=== PATIENT | male | born 1995 | race Caucasian/White ===

== ENCOUNTER 2017-08-03 20:14 | Emergency (ER) | payer BC, OTHER ==
[~2017-08-03] VITALS: Ht 180.3 cm; Wt 64.8 kg
[~2017-08-03 20:14] MED LIST: PLMIN90 IN
[2017-08-03 20:17] VITALS: TEMP 36.7; Ht 180.3 cm; Wt 64.8 kg
[2017-08-03] MEDS ORDERED: PROPARACAINE HCL 0.5% OP SOLN 15 ML BTL OP STA (20:34)
[2017-08-03] MEDS ORDERED: CIPROFLOXACIN HCL 0.3% OP SOLN 2.5 ML BTL OP STA (21:08)
[2017-08-03] MEDS ORDERED: CETI10TA84 PO (21:22)
[2017-08-03] MEDS ORDERED: MONT1TAB3 PO (21:22)
[2017-08-03 21:26] VITALS: BP 109/71; PULSE 66; O2SAT 98
--- NOTE | 2017-08-03 22:58 | EMERGENCY ROOM VISIT NOTE ---
History First contact with patient: 20:34 Chief Complaint: EYE ASSESSMENT Stated Complaint: LEFT EYE REDNESS, PAINFUL, SENSITIVE TO LIGHT History of Present Illness The patient is a 22 year old male who presents to the Emergency Room with complaints of left eye discomfort, photophobia and blurred vision. The patient reports that he has had this discomfort over the past week, significantly worsen this morning. The patient does wear extended use contacts, but does not sleep within then his eyes. The patient has had some crusting of the left eye. When he tried to put the contact lens in this morning, he could not do so because of the pain. He denies headache or fever, and rates his discomfort a 6 out of 10. Review of Systems 10 system review was performed and was negative except for pertinent positives and negatives as indicated in history of present illness Past Medical/Surgical History Medical Problems: (1) Anxiety State Nos (2) Anxiety State Nos (3) Asthma, Unspecified (4) Asthma, Unspecified (5) Fx Radius Nos-Closed (6) Fx Radius Nos-Closed Surgical Problems: (1) History of cardiac radiofrequency ablation (RFA) (2) History of cardiac radiofrequency ablation (RFA) (3) History of hernia surgery (4) History of hernia surgery Family History FH: hypertension FH: lung disease Social History Smoking Status: Never Smoker Alcohol Use: none Drug Use: none Marital Status: single Housing Status: lives with roommate Occupation Status: student Current/Historical Medications Scheduled Cetirizine (Zyrtec), 10 MG PO DAILY Montelukast Sodium (Singulair), 10 MG PO DAILY Physical Exam Vital Signs Date Time Temp Pulse Resp B/P (MAP) Pulse Ox O2 Delivery O2 Flow Rate FiO2 08/03/17 21:26 66 18 109/71 98 08/03/17 20:17 36.7 71 18 110/77 95 Room Air Right Eye Acuity: 20/70 with correction Left Eye Acuity: 20/50 with correction Physical Exam CONSTITUTIONAL: Healthy and well nourished. Alert and oriented X 3 with positive affect. HEENT: Examination shows mild conjunctival injection of the left eye. No obvious mucopurulent drainage. Pupils equal, round and reactive. No rhinorrhea. NECK: Full active range of motion without discomfort. INTEGUMENTARY: No rash or other significant dermatologic conditions noted. NEUROLOGIC: Cranial nerves II-XII grossly intact. No focal neurologic deficits noted. Medical Decision & Procedures Medications Administered Medications (Trade) Dose Ordered Sig/Toni Route Start Time Stop Time Status Last Admin Dose Admin Ciprofloxacin HCl (Ciprofloxacin 0.3% Op Soln) 1 drops NOW STAT OP 08/03/17 21:08 08/03/17 21:10 DC 08/03/17 21:22 1 DROPS Procedure Slit lamp and fluorescein exam were performed. 2 drops of Alcaine were instilled into the eye with notable relief of pain. Slit lamp exam does not show any obvious foreign debris within the lower conjunctival sac. Negative hyphema, negative cell and flare. Fluorescein exam shows uptake at the superior border of the cornea between 12 and 1:00. Negative Fermin test. ED Course Patient history and physical exam were performed. Nurse's notes were reviewed. Vital signs were reviewed and were normal. Slit lamp and fluorescein exam shows mild corneal uptake and conjunctival injection consistent with conjunctivitis from contact lens use. The patient was dispensed Ciloxan 0.3% ophthalmic solution, and instructions for use. He was encouraged to follow-up with ophthalmology if symptoms are not improving within the next 48 hours. He is also welcome to return to the emergency department. He was instructed to refrain from contact lens use for 2 weeks, then start with all brand-new products to avoid cross contamination. The patient was happy with plan of care , voiced understanding of all discharge instructions, and denied any pain at the conclusion of my exam. Medical Decision Blood Pressure Screening Patient's blood pressure: Normal blood pressure Impression Primary Impression: Conjunctivitis, left eye Additional Impression: Uses contact lenses Departure Information Dispostion Home / Self-Care Condition GOOD Referrals Marcus Clements M.D. Forms HOME CARE DOCUMENTATION FORM, IMPORTANT VISIT INFORMATION Patient Instructions My [facility] Additional Instructions Apply one Cipro antibiotic eyedrop every 4-6 hrs (while awake) for 7 days. Ibuprofen 800 mg and/or Tylenol 1000 mg every 8 hours. You may also alternate these medications for more effective pain relief: Ibuprofen --4 HRS--> Tylenol --4 HRS--> ibuprofen --4 HRS--> Tylenol .... You may also intermittently apply a cool compress and wear sunglasses for additional relief. No contact lens use for 14 days. Start with all-new contact lenses, solution, rewetting drops and cosmetics. Follow-up with an heavy duty press operator (Dr. Clements) if no improvement within 48 hrs. Problem Qualifiers Primary Impression: Conjunctivitis, left eye Conjunctivitis type: acute Acute conjunctivitis type: bacterial Qualified Codes: H10.32 - Unspecified acute conjunctivitis, left eye
== END 2017-08-03 21:26 | disposition home or self-care (01) ==
LOC: C.EDB 20:16 → C.EDD 21:26
DX: H10.32 Unspecified acute conjunctivitis, left eye (principal); F41.9 Anxiety disorder, unspecified; J45.909 Unspecified asthma, uncomplicated

== ENCOUNTER 2017-10-18 09:26 | Inpatient (IN) | payer BC ==
[2017-10-08 14:25] VITALS: BMI 21.0
--- NOTE | 2017-10-08 14:52 | PAT Medication Instructions ---
Service Date Oct 08, 2017. Current Home Medication List Albuterol Hfa (Ventolin Hfa), 2 PUFFS INH PRN Escitalopram Oxalate (Lexapro), 20 MG PO QAM Fluticasone Propionate (Nasal) (Flonase Allergy Relief), 2 SPRAYS INTNAS BID [Iron], 65 MG PO NOON Medication Instructions For Your Scheduled Surgery - Hold the following medications the morning of surgery: [Iron], 65 MG PO NOON - Take the following medications the morning of surgery with a sip of water OTHERWISE NOTHING TO EAT OR DRINK AFTER MIDNIGHT: Albuterol Hfa (Ventolin Hfa), 2 PUFFS INH PRN (use if needed; BRING TO HOSPITAL) Fluticasone Propionate (Nasal) (Flonase Allergy Relief), 2 SPRAYS INTNAS BID Escitalopram Oxalate (Lexapro), 20 MG PO QAM - Take the following medications as scheduled the night before surgery: Albuterol Hfa (Ventolin Hfa), 2 PUFFS INH PRN Fluticasone Propionate (Nasal) (Flonase Allergy Relief), 2 SPRAYS INTNAS BID If you have any questions please call us at [phone] or [phone] or [phone]
[2017-10-08 15:46] LABS: BASO % 0.6 %; BASO ABS # 0.04 K/uL (0-0.2); COMPLETE YES; HEMATOCRIT 40.8 % (42-52); IG% 0.1 %; LYMPH % 23.6 %; LYMPH ABS # 1.71 K/uL (1.2-3.4); MEAN CELL VOLUME 84.8 fL (80-100); MEAN CORPUSCULAR HEMOGLOBIN 29.9 pg (25-34); MEAN CORPUSCULAR HGB CONC 35.3 g/dl (32-36); MEAN PLATELET VOLUME 10.1 fL (7.4-10.4); MONO % 7.9 %; NEUT % 66.8 %; PLATELET COUNT 184 K/uL (130-400); RED BLOOD COUNT 4.81 M/uL (4.7-6.1); WHITE BLOOD COUNT 7.24 K/uL (4.8-10.8)
[2017-10-18] VITALS (7 sets, daily range): BP systolic 112–147; BP diastolic 48–75; PULSE 56–86; TEMP 36.6–37.3; O2SAT 96–100; Ht 180.3 cm; Wt 68.8 kg
[~2017-10-18] VITALS: Ht 180.3 cm; Wt 68.8 kg
[~2017-10-18 09:26] MED LIST changes: +CEFAZOLIN 1000MG IV PUSH 5 ML IV SCH; +DEXAMETHASONE INJ 8 MG in SYRINGE 0 ML IV SCH; +ESCI1TAB10 PO; +FENTANYL CITRATE INJ 50 MCG/1 ML 2 ML VIAL ONE; +FLUT0.15 INTNAS; +HYDROmorphone INJ 2 MG/ML SYR/VIAL ONE; +IRON PO; +LACTATED RINGER'S 1000ML 1,000 ML IV SCH; +MIDAZOLAM HCL 1 MG/ML 2ML VIAL ONE; -PLMIN90 IN; +VNTHFA/IN INH
[2017-10-18] MEDS ORDERED: CHLORHEXIDINE GLUCONATE 0.12% 15 ML UDP ONE ×3 (09:50→09:56)
[2017-10-18] MEDS ORDERED: OXYMETAZOLINE HCL 0.05% NA SPR 15 ML BTL ONE (09:50)
[2017-10-18] MEDS ORDERED: LIDOCAINE HCL 2% JELLY 30 ML TUBE EXT ONE (09:50)
[2017-10-18] MEDS ORDERED: TRIAMCINOLONE ACET 0.1% OINT 15 GM TUBE ONE (09:52)
[2017-10-18] MEDS ORDERED: BUPIVACAINE/EPINEPHRINE 0.5% 1:200,000 1.8 ML CARP ONE ×2 (09:55→11:17)
[2017-10-18] MEDS ORDERED: SCOPOLAMINE 1.5 MG TDSY TD ONE (11:27)
--- NOTE | 2017-10-18 11:50 | History & Physical Bridge Note ---
H&P Re-Evaluation Bridge Note: I have examined the patient, reviewed the History & Physical and in the interval since the performance of the History & Physical I have noted the following changes of clinical significance: No changes noted
[2017-10-18] MEDS ORDERED: LIDOCAINE HCL 2% 2 ML VIAL (20MG/ML) ONE (12:49)
[2017-10-18] MEDS ORDERED: PROPOFOL IV EMULSION 10 MG/ML 20 ML VIAL IV ONE ×2 (12:49→13:16)
[2017-10-18] MEDS ORDERED: ROCURONIUM BROMIDE 10 MG/ML 5 ML VIAL IV ONE (12:49)
[2017-10-18] MEDS ORDERED: DEXAMETHASONE SOD INJ 4 MG/ML VIAL ONE (12:49)
[2017-10-18] MEDS ORDERED: GLYCOPYRROLATE INJ 0.2 MG/ML VIAL ONE (12:49)
[2017-10-18] MEDS ORDERED: ONDANSETRON INJ 2 MG/ML 2 ML VIAL ONE (12:49)
[2017-10-18] MEDS ORDERED: NEOSTIGMINE METHYLSULFATE 5 MG/5 ML SYR ONE (12:49)
[2017-10-18] MEDS ORDERED: EpHEDrine SULFATE 50MG/5ML SYR ONE (13:06)
--- NOTE | 2017-10-18 14:10 | [facility] Post Operative Brief Note ---
Immediate Operative Summary Operative Date Oct 18, 2017. 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 Carcamo Assistant Property Manager Surgeon(s) Gabi Jacques PA-C Estimated Blood Loss 50 mls Findings Stable fixation with class I occlusion, good perfusion of the maxillary anterior gingiva. Fluids (cc crystalloids) 1200 Specimens None per surgeon Drains None Anesthesia GNETA Disposition Recovery Room / PACU
[2017-10-18] MEDS ORDERED: MoRPHine SULFATE 4 MG/ML 1 ML CARP\\VIAL IV PRN (14:15)
[2017-10-18] MEDS ORDERED: MoRPHine SULFATE 2 MG/ML CARP IV PRN (14:15)
[2017-10-18] MEDS ORDERED: SODIUM CHLORIDE 0.65% NA SOLN 45 ML (OCEAN) PRN (14:15)
[2017-10-18] MEDS ORDERED: ACETAMINOPHEN SOLN 325 MG/10.15 ML UDC PO PRN (14:15)
[2017-10-18] MEDS ORDERED: OXYMETAZOLINE HCL 0.05% NA SPR 15 ML BTL PRN (14:15)
[2017-10-18] MEDS ORDERED: ACETAMINOPHEN/HYDROCODONE ELIX 15 ML/CUP UDP PO PRN ×2 (14:15)
[2017-10-18] MEDS ORDERED: FENTANYL CITRATE INJ 50 MCG/1 ML 2 ML VIAL ONE (14:43)
--- NOTE | 2017-10-18 14:50 | OPERATIVE REPORT ---
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 SURGEON: Dr. Carcamo. ANESTHESIA: General nasal endotracheal. ESTIMATED BLOOD LOSS: 50mls. DRAINS: None. SPECIMENS: None. COMPLICATIONS: None. 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 We watched his growth and confirmed that he is skeletally mature. He has had pre-operative orthodontic therapy. He has had current models and model surgery to plan the correction of his skeletal deformity. I have reviewed with him carefully over a number of occasions the details of the surgery, the risks and the benefits and he has signed an informed consent. He has also undergone a routine preanesthesia medical evaluation. The patient was taken to the operating room, placed supine on the operating room table. Routine anesthesia monitors were applied. General anesthesia was induced and nasoendotracheal intubation was performed. The eyes were lubed and taped. The endotracheal tube was secured and a sterile prep and drape was performed. A time-out was taken and we began the procedure by irrigating the oral cavity with chlorhexidine solution and using four carpules of 0.5% Marcaine as a local anesthesia. I then created the typical upper buccal sulcus incision with the needle tipped electrocautery and carried this down and through the periosteum. The anterior maxilla was exposed in the subperiosteal plane. The anterior nasal spine was skeletonized and the nasal mucosa was elevated away from the floor of the nose. I then used the reciprocating saw to create the LeForte I osteotomy taking care to avoid the roots of the teeth and used a guarded osteotome to complete the lateral nasal osteotomy, straight osteotome to separate the nasal septum from the maxillary crests and a curved osteotome to separate the pterygoid plates from the tuberosity of the maxilla. I then downfractured the maxilla, removed bony interferences in the posterior lateral nose and posterior maxilla and then I advanced the maxilla into the prefabricated surgical splint. We removed bony interferences and then plated the maxilla in its new position to keep the condyles seated in the fossa. With four 2.0 Synthes plates and plates fixing the maxilla at the nasal buttress and at the maxillary buttress. I then released the wire IMF and confirmed he came back into the intended occlusion which was a nice class I dental occlusion. The osteotomy was stable in this position. The wounds were irrigated and then closed with a V-Y advancement in the anterior midline of about 8 mm and then a running 4-0 chromic suture in the mucosa. He was turned over to the anesthesia, extubated in the operating room and transferred to the recovery area in stable condition. At the end of the procedure all counts were correct. I attest to the content of the Intraoperative Record and any orders documented therein. Any exceptions are noted below. YOANAD
[2017-10-18] MEDS ORDERED: ATROPINE SULFATE 0.1 MG/ML 5ML SYR IV PRN (15:00)
[2017-10-18] MEDS ORDERED: ONDANSETRON INJ 2 MG/ML 2 ML VIAL IV PRN (15:00)
[2017-10-18] MEDS ORDERED: EpHEDrine SULFATE INJ 50 MG/ML AMP IV PRN (15:00)
[2017-10-18] MEDS ORDERED: FENTANYL CITRATE INJ 50 MCG/1 ML 2 ML VIAL IV PRN (15:00)
--- NOTE | 2017-10-18 15:09 | Anesthesiology Progress Note ---
Anesthesia Post Op Note Date & Time Oct 18, 2017 at 15:09 Vital Signs Pain Intensity: 0 Vital Signs Past 12 Hours Date Time Temp Pulse Resp B/P (MAP) Pulse Ox O2 Delivery O2 Flow Rate FiO2 10/18/17 15:03 69 15 10/18/17 15:03 66 15 94 10/18/17 15:01 141/66 10/18/17 14:58 92 22 94 10/18/17 14:58 91 22 10/18/17 14:56 142/83 10/18/17 14:53 90 21 10/18/17 14:53 88 21 95 10/18/17 14:52 97 15 95 10/18/17 14:52 93 15 10/18/17 14:51 148/84 10/18/17 14:47 75 12 10/18/17 14:47 74 12 96 10/18/17 14:46 138/79 10/18/17 14:42 76 15 96 10/18/17 14:42 76 15 10/18/17 14:41 150/80 10/18/17 14:37 94 23 97 10/18/17 14:37 92 23 10/18/17 14:36 144/88 10/18/17 14:35 75 19 97 10/18/17 14:35 76 19 10/18/17 14:31 144/85 10/18/17 14:30 71 14 10/18/17 14:30 72 14 96 10/18/17 14:26 141/87 10/18/17 14:25 37.1 61 16 141/89 96 Oxymask 10 10/18/17 09:40 36.8 56 18 112/75 (87) 100 Room Air Notes Mental Status: alert / awake / arousable, participated in evaluation Pt Amnestic to Procedure: Yes Nausea / Vomiting: adequately controlled Pain: adequately controlled Airway Patency, RR, SpO2: stable & adequate BP & HR: stable & adequate Hydration State: stable & adequate Anesthetic Complications: no major complications apparent
[2017-10-18] MEDS: D5W AND 1/2NSS + 20MEQ KCL 1,000 ML IV SCH (17:31)
[2017-10-18] MEDS: KETOROLAC TROMETHAMINE 30 MG/ML VIAL IV. SCH ×2 (17:32→23:18)
[2017-10-18] MEDS ORDERED: TRIAMCINOLONE ACET 0.1% OINT 15 GM TUBE EXT SCH (21:00)
[2017-10-19] MEDS: D5W AND 1/2NSS + 20MEQ KCL 1,000 ML IV SCH (02:27)
[2017-10-19 03:39] VITALS: BP 114/71; PULSE 82; TEMP 36.7; O2SAT 97
[2017-10-19] MEDS: KETOROLAC TROMETHAMINE 30 MG/ML VIAL IV. SCH (06:18)
[2017-10-19 07:25] VITALS: O2SAT 94
[2017-10-19 07:41] VITALS: BP 128/55; PULSE 68; TEMP 37.1; O2SAT 94
--- NOTE | 2017-10-19 08:24 | Progress Note ---
Progress Note Date of Service Oct 19, 2017. Progress Note Doing well post op from his LeFort osteotomy AF VSS Tolerating PO Ambulating independently Minimal swelling, airway clear, no concerning bleeding, incisions clean, dry and intact. His occlusion is class I as planned. Impression - doing well POD #1 Plan - D/C to home with close outpatient follow-up.
[2017-10-19 08:30] VITALS: BP 128/55; PULSE 68; TEMP 37.1; O2SAT 94
--- NOTE | 2017-10-19 08:31 | Discharge Instructions ---
Discharge Instructions Date of Service Oct 19, 2017. Admission Reason for Admission: Maxillary Hypoplasia Discharge Discharge Diagnosis / Problem: Same Discharge Goals Goal(s): Decrease discomfort, Improve function Activity Recommendations Activity Limitations: as noted below Lifting Limitations: gradually increase as tolerated Exercise/Sports Limitations: gradually increase as tolerated Shower/Bathe: no limitations . Instructions / Follow-Up Instructions / Follow-Up Take your antibiotics as prescribed Try NSAIDS for mild pain, Rx pain meds if needed (already have at home) [place] teeth very gently Salt water rinses 2-3 times a day for the next week Ice as needed OK to shower Don't drive if taking Rx pain meds Current Hospital Diet Patient's current hospital diet: Full Liquid Diet Discharge Diet Recommended Diet: Full Liquid Diet Diet Texture: Pureed (blended smooth) Procedures Procedures Performed: Lefort I Maxillary Osteotomy Pending Studies Studies pending at discharge: no Medical Emergencies . Who to Call and When: Medical Emergencies: If at any time you feel your situation is an emergency, please call 911 immediately. . Non-Emergent Contact Non-Emergency issues call your: Surgeon (If you have any questions prior to your follow up appointment, call Dr. Carcamo at [phone]) Call Non-Emergent contact if: temperature is above 100.5 . "Provider Documentation" section prepared by Carrillo Carcamo. . VTE Core Measure Inpt VTE Proph given/why not?: SCD's
--- NOTE | 2017-10-19 08:40 | DISCHARGE SUMMARY ---
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 HOSPITAL PROCEDURES: LeFort I maxillary advancement to correct his malocclusion. COMPLICATIONS: None. Please refer to the patient's admission history and physical. SUMMARY: Israel is a healthy 22-year-old who is being brought to the hospital for orthognathic surgery. HOSPITAL COURSE: Subsequent to the OR, he was transferred to the recovery area in stable condition and then to the third floor for monitoring overnight. Through the course of the night, he began to take a full liquid diet without any nausea, ambulated independently, voided, had good pain control and no problematic postoperative bleeding. This morning, he is afebrile. Vital signs are stable. The surgical sites all look good and I feel he is stable for discharge to home. He will go home on pain medications and oral antibiotics and will have close outpatient followup with me. I have reviewed with him appropriate diet, wound care and the proper levels of activity.
== END 2017-10-19 10:36 | disposition home or self-care (01) | DRG 132 ==
LOC: C.ACU 09:26 → C.MSN 10:15 → ENRESERV 15:44
PROVIDERS: ADMIT Dentist Oral and Maxillofacial Pathology; ATTEND Dentist Oral and Maxillofacial Pathology
PROC: 0NSR04Z Reposition Maxilla with Internal Fixation Device, Open Approach (ICD-10-PCS; principal; 2017-10-18 11:30)
DX: M26.02 Maxillary hypoplasia (principal); M26.213 Malocclusion, Angle's class III; J45.909 Unspecified asthma, uncomplicated; F32.9 Major depressive disorder, single episode, unspecified; Z79.899 Other long term (current) drug therapy